=== PATIENT | male | born 1935 | race Caucasian/White ===

== ENCOUNTER 2018-08-31 00:55 | Inpatient (IN) | payer MEDICARE, OTHER ==
[~2018-08-31] VITALS: Ht 172.7 cm; Wt 98.0 kg
[2018-08-31] MEDS ORDERED: DILT360C40 (01:23)
[2018-08-31] MEDS ORDERED: DETEMIR SUBCUT (01:23)
[2018-08-31] MEDS ORDERED: FURO-150 PO (01:23)
[2018-08-31] MEDS ORDERED: HYDR100T27 PO (01:23)
[2018-08-31] MEDS ORDERED: CYA500T PO (01:23)
[2018-08-31] MEDS ORDERED: FOLI0.4T2 PO (01:23)
[2018-08-31] MEDS ORDERED: DILT360C40 PO (01:23)
[2018-08-31] MEDS ORDERED: MAGN500T9 PO (01:25)
[2018-08-31] MEDS ORDERED: LOSA25TA96 PO (01:25)
[2018-08-31] MEDS ORDERED: OMEG1CAP PO (01:25)
[2018-08-31] MEDS ORDERED: LACT1CAP73 PO (01:25)
[2018-08-31] MEDS ORDERED: TRAM50TA2 PO (01:31)
[2018-08-31] MEDS ORDERED: KEN0.1O TP (01:31)
--- NOTE | 2018-08-31 01:33 | NUR ---
ADD NOTE: PT WAS PLACED ON CONTACT PRECAUTIONS UPON ADMIT INTO ED R/T ACTIVE SHINGLES.
[2018-08-31 01:36] LABS: ALBUMIN 2.9 G/DL (3.4-5.0); ANION GAP 15 (8-16); BILIRUBIN,TOTAL 0.3 MG/DL (0.1-1.0); BLOOD UREA NITROGEN 58 MG/DL (7-18); BUN/CREATININE RATIO 13.3 (5.4-32.0); CALCIUM 8.5 MG/DL (8.5-10.1); CHLORIDE 104 MMOL/L (99-107); CREATININE 4.36 MG/DL (0.60-1.10); GLUCOSE 179 MG/DL (70-104); POTASSIUM 4.6 MMOL/L (3.5-5.1); SODIUM 139 MMOL/L (135-145); TOTAL CARBON DIOXIDE 19.8 MMOL/L (24-32); TOTAL PROTEIN 7.1 G/DL (6.4-8.2); eGFR 13 ML/MIN
[2018-08-31 01:37] LABS: ALANINE AMINOTRANSFERASE 17 U/L (12-78); ALBUMIN/GLOBULIN RATIO 0.7 (1.1-1.5); ALKALINE PHOSPHATASE 92 IU/L (46-116); ASPARTATE AMINO TRANSFERASE 11 U/L (10-37)
[2018-08-31 01:46] LABS: PARTIAL THROMBOPLASTIN TIME 31 SECONDS (22-32); PROTHROMBIN TIME 10.6 SECONDS (9.0-12.0)
[2018-08-31 01:56] LABS: BASOPHILS % (AUTO) 0.4 % (0-1); EOSINOPHILS # (AUTO) 0.3 X10'3 (0-0.9); HEMATOCRIT 35.4 % (42.0-52.0); HEMOGLOBIN 11.5 g/dl (14.0-17.9); LYMPHOCYTES # (AUTO) 1.4 X10'3 (1.1-4.8); LYMPHOCYTES % (AUTO) 15.8 % (21-51); MEAN CORPUSCULAR HGB CONC 32.5 % (33.0-36.5); MEAN CORPUSCULAR VOLUME 89.3 FL (78-98); MEAN PLATELET VOLUME 9.2 FL (7.4-10.4); MONOCYTES # (AUTO) 0.9 X10'3 (0-0.9); MONOCYTES % (AUTO) 10.8 % (2-12); PLATELET COUNT 289 X10'3 (140-440); RED BLOOD COUNT 3.97 X10'6 (4.70-6.10); RED CELL DISTRIBUTION WIDTH 14.4 % (11.5-14.5); WHITE BLOOD COUNT 8.6 X10'3 (4.5-11.0)
[2018-08-31] MEDS ORDERED: bisacodyl 10mg suppository rectal RC PRN (03:30)
[2018-08-31] MEDS ORDERED: magnesium hydroxide 30ml (MOM) UD suspension PO PRN (03:30)
[2018-08-31] MEDS ORDERED: acetaminophen 325mg tablet PO PRN ×2 (03:30)
[2018-08-31] MEDS ORDERED: diphenhydrAMINE 25mg capsule PO PRN (03:30)
[2018-08-31] MEDS ORDERED: ondansetron/PF 4mg/2ml inj IV PRN (03:30)
[2018-08-31] MEDS ORDERED: mag hydrox/Alum hydrox/simeth 30ml oral suspension PO PRN (03:30)
[2018-08-31] MEDS ORDERED: HYDROmorphone 1 mg/ml syringe IV PRN ×2 (03:30)
[2018-08-31] MEDS ORDERED: acetaminophen 650mg rectal suppository RC PRN (03:30)
[2018-08-31] MEDS ORDERED: diphenhydrAMINE 50 mg/ml inj IV PRN (03:30)
[2018-08-31] MEDS ORDERED: traMADol 50MG tablet PO PRN (03:30)
[2018-08-31] MEDS ORDERED: metoclopramide 5 mg/ml inj IV PRN (03:30)
[2018-08-31] MEDS ORDERED: dextrose 50%-water 50ml dispensing syringe IV PRN ×2 (03:45)
[2018-08-31] MEDS ORDERED: glucagon, human recombinant 1mg kit SUBCUT PRN (03:45)
[2018-08-31] MEDS ORDERED: MESSAGE TO PHARMACY PO ONE (03:45)
[2018-08-31] MEDS ORDERED: dextrose ORAL solution 15 GM/59 ML bottle PO PRN ×2 (03:45)
[2018-08-31 03:56] LABS: HEMOGLOBIN A1C 8.2 % (4.5-6.2)
[2018-08-31 04:10] LABS: MAGNESIUM 2.3 MG/DL (1.5-2.4); PHOSPHORUS 5.5 MG/DL (2.3-4.5)
--- NOTE | 2018-08-31 05:45 | NUR ---
straightened out his bed linen for him, raised his legs a little to make him more comfortable.
--- NOTE | 2018-08-31 05:47 | NUR ---
add note: he wanted his pulse off for a bit, he said it is really bugging him.
--- NOTE | 2018-08-31 05:56 | NUR ---
pt standing bs to void
[2018-08-31] MEDS: diltiazem CD 180mg cap (once-daily) PO SCH (07:49)
[2018-08-31] MEDS: pantoprazole 40mg Tablet.DR PO SCH (07:49)
[2018-08-31] MEDS: docusate sod 100mg capsule PO SCH ×2 (07:49→19:29)
[2018-08-31] MEDS: heparin, porcine 5000 units/ml vial SQ SCH ×2 (07:50→19:30)
[2018-08-31] MEDS ORDERED: losartan 25mg tablet PO SCH (08:00)
[2018-08-31] MEDS ORDERED: furosemide 10 MG/1 ML 10ml inj IV SCH (08:00)
[2018-08-31] MEDS: insulin Lispro (HumaLOG) vial - multi-dose SQ SCH (08:25)
--- NOTE | 2018-08-31 08:35 | NUR ---
ATTEMPTED TO GIVE REPORT TO GUSTAVO, WAS TOLD SHE WILL CALL ME BACK IN 15MIN.
[2018-08-31 10:00] VITALS: BP 190/67
[2018-08-31] MEDS ORDERED: pneumococcal 23-VAL P-sac vacc 25 mcg/0.5ml vial IMVAC ONE (10:00)
[2018-08-31] MEDS: hydrALAZINE 20mg/ml inj. IV PRN ×2 (17:12→23:05)
[2018-08-31 18:00] VITALS: BP 211/73
--- NOTE | 2018-08-31 18:10 | NUR ---
Patient in room [facility]. I have received report from MAGGIE Aguirre and had the opportunity to ask questions and assume patient care.
[2018-08-31 18:46] VITALS: BP 183/61
[2018-08-31] MEDS: furosemide 40mg/4ml inj IV SCH (19:29)
[2018-08-31] MEDS ORDERED: HYDROmorphone inj. 0.5 MG/0.5 ML DISP.SYRIN IV PRN (20:43)
[2018-08-31] MEDS ORDERED: temazepam 15mg capsule PO PRN (21:00)
[2018-08-31 22:00] VITALS: BP 187/64
[2018-08-31 23:11] VITALS: BP 184/69
[2018-09-01] VITALS (9 sets, daily range): BP systolic 144–210; BP diastolic 54–70
[2018-09-01] MEDS ORDERED: cloNIDine 0.1 mg tablet PO ONE (00:40)
[2018-09-01] MEDS: hydrALAZINE 20mg/ml inj. IV PRN ×3 (05:01→18:32)
--- NOTE | 2018-09-01 06:22 | NUR ---
RECEIVED REPORT FROM MAGGIE BERRY
--- NOTE | 2018-09-01 06:24 | NUR ---
Problems reprioritized. Patient report given, questions answered & plan of care reviewed with MAGGIE Macedo.
[2018-09-01 07:48] LABS: ALBUMIN 2.3 G/DL (3.4-5.0); ANION GAP 11 (8-16); BASOPHILS % (AUTO) 0.3 % (0-1); BLOOD UREA NITROGEN 58 MG/DL (7-18); BUN/CREATININE RATIO 12.5 (5.4-32.0); CHLORIDE 106 MMOL/L (99-107); CHOL/HDL RATIO 3.2 (0.00-4.99); CHOLESTEROL 134 MG/DL (0-200); CREATININE 4.63 MG/DL (0.60-1.10); EOSINOPHILS # (AUTO) 0.2 X10'3 (0-0.9); EOSINOPHILS % (AUTO) 4.3 % (0-6); GLUCOSE 124 MG/DL (70-104); HDL CHOLESTEROL 42 MG/DL (35-60); HEMOGLOBIN 9.9 g/dl (14.0-17.9); LDL CHOLESTEROL 80 MG/DL (50-100); LYMPHOCYTES # (AUTO) 0.7 X10'3 (1.1-4.8); LYMPHOCYTES % (AUTO) 13.7 % (21-51); MAGNESIUM 2.3 MG/DL (1.5-2.4); MEAN CORPUSCULAR HEMOGLOBIN 29.2 PG (27.0-31.0); MEAN CORPUSCULAR VOLUME 88.6 FL (78-98); MEAN PLATELET VOLUME 9.5 FL (7.4-10.4); MONOCYTES # (AUTO) 0.8 X10'3 (0-0.9); MONOCYTES % (AUTO) 15.2 % (2-12); NEUTROPHILS # (AUTO) 3.5 X10'3 (1.8-7.7); NEUTROPHILS % (AUTO) 66.5 % (42-75); PLATELET COUNT 203 X10'3 (140-440); POTASSIUM 4.8 MMOL/L (3.5-5.1); RED BLOOD COUNT 3.39 X10'6 (4.70-6.10); RED CELL DISTRIBUTION WIDTH 15.5 % (11.5-14.5); SODIUM 140 MMOL/L (135-145); TOTAL CARBON DIOXIDE 22.8 MMOL/L (24-32); TRIGLYCERIDES 87 MG/DL (20-135); WHITE BLOOD COUNT 5.3 X10'3 (4.5-11.0); eGFR 12 ML/MIN
[2018-09-01] MEDS: diltiazem CD 180mg cap (once-daily) PO SCH (08:02)
[2018-09-01] MEDS: docusate sod 100mg capsule PO SCH ×2 (08:03→20:08)
[2018-09-01] MEDS: pantoprazole 40mg Tablet.DR PO SCH (08:03)
[2018-09-01] MEDS: furosemide 40mg/4ml inj IV SCH (08:06)
[2018-09-01] MEDS: heparin, porcine 5000 units/ml vial SQ SCH ×2 (08:06→20:09)
--- NOTE | 2018-09-01 14:36 | NUR ---
Initial: Pt admitted with acute CHF and acute renal failure. Pt with A1c 8.2 seen at bedside with SO present. Most communication during visit was with patient's SO as pt was in and out of sleep. Pt's states pt goes to [facility] but does not see an anesthetic assistant for DM management, takes his insulin per rx w/o difficulties, and checks BG q morning with resulting numbers 90-140 per pt. Written DM education with referral to outpatient DM class and RD contact information given to pt's SO. Documented PO intake 50-75% although pt endorses low appetite, pt denies ONS at this time. Pt reports no food allergies or difficulty chewing/swallowing. Pt states he has some constipation with LBM 09/01 stating it was small, requests prunes with dinner, d/w dietary. Will continue to follow. Recommendations: 1) Continue with CHO controlled Na restrict diet 2) Monitor need for ONS 3) Wt per rx Addendum: 09/01/18 at [address] Amended: Links added.
[2018-09-01] MEDS ORDERED: dextrose 50%-water 50ml dispensing syringe IV PRN ×2 (17:50)
[2018-09-01] MEDS ORDERED: glucagon, human recombinant 1mg kit SUBCUT PRN (17:50)
[2018-09-01] MEDS ORDERED: dextrose ORAL solution 15 GM/59 ML bottle PO PRN ×2 (17:50)
[2018-09-01] MEDS ORDERED: insulin Lispro (HumaLOG) vial - multi-dose SQ SCH (17:50)
[2018-09-01] MEDS ORDERED: MESSAGE TO PHARMACY PO ONE (17:50)
--- NOTE | 2018-09-01 18:15 | NUR ---
GAVE REPORT TO MAGGIE MEDRANO
--- NOTE | 2018-09-01 18:20 | NUR ---
Patient in room [facility] 4023B. I have received report from MAGGIE HUNG and had the opportunity to ask questions and assume patient care.
[2018-09-01 19:30] LABS: CLARITY,URINE CLEAR (Clear); COLOR,URINE YELLOW (Yellow); GLUCOSE, URINE 250 mg/dl (Neg); KETONES,URINE NEGATIVE (Neg); LEUKOCYTE ESTERASE ,URINE NEGATIVE (Neg); NITRITES, URINE NEGATIVE (Neg); OCCULT BLOOD,URINE TRACE-LYSED (Neg); PROTEIN,URINE >=300 mg/dl (Neg); UROBILINOGEN,URINE 0.2 E.U/dL (0.2-1.0)
[2018-09-01 19:34] LABS: UA COLLECTION TYPE CLN CATCH MIDSTREAM
[2018-09-01 19:43] LABS: BACTERIA,URINE NONE SEEN /HPF (Neg); FINE GRANULAR CAST 0-3 /LPF (NEGATIVE); HYALINE CASTS 0-3 /LPF (NEGATIVE); MUCUS STRANDS FEW /LPF (Neg); RBC,URINE 0-2 /HPF (0-2); SQUAMOUS EPITHELIAL CELL,UR FEW /LPF (FEW); TOTAL PROTEIN,URINE RANDOM 895.6 MG/DL; WAXY CASTS,URINE 0-3 /LPF (NEGATIVE); WBC,URINE 0-4 /HPF (0-4)
[2018-09-01] MEDS: triamcinolone acet 0.1% cream 15gm TP SCH (20:00)
[2018-09-01] MEDS ORDERED: omega-3 acid ethyl esters 1GM capsule PO SCH (20:00)
[2018-09-01] MEDS: hydrALAZINE 25 MG tablet PO SCH (20:08)
[2018-09-01 20:23] LABS: UA EOSINOPHILS NO EOS /HPF
[2018-09-01] MEDS ORDERED: DETEMIR SUBCUT SCH (21:00)
[2018-09-01] MEDS: insulin glargine (Lantus) pen - multi-dose SQ SCH (21:35)
[2018-09-01] MEDS: cloNIDine 0.1 mg tablet PO PRN (21:40)
[2018-09-02] VITALS (7 sets, daily range): BP systolic 135–196; BP diastolic 52–71
--- NOTE | 2018-09-02 06:17 | NUR ---
RECEIVED REPORT FROM MARCELA RN
--- NOTE | 2018-09-02 06:20 | NUR ---
Problems reprioritized. Patient report given, questions answered & plan of care reviewed with MAGGIE HUNG.
[2018-09-02] MEDS: cloNIDine 0.1 mg tablet PO PRN ×2 (06:36→17:27)
[2018-09-02 07:02] LABS: BASOPHILS % (AUTO) 0.4 % (0-1); EOSINOPHILS # (AUTO) 0.2 X10'3 (0-0.9); EOSINOPHILS % (AUTO) 3.6 % (0-6); HEMATOCRIT 32.4 % (42.0-52.0); HEMOGLOBIN 10.6 g/dl (14.0-17.9); LYMPHOCYTES # (AUTO) 1.3 X10'3 (1.1-4.8); LYMPHOCYTES % (AUTO) 22.1 % (21-51); MEAN CORPUSCULAR HEMOGLOBIN 28.8 PG (27.0-31.0); MEAN CORPUSCULAR HGB CONC 32.7 % (33.0-36.5); MEAN CORPUSCULAR VOLUME 88.1 FL (78-98); MEAN PLATELET VOLUME 9.4 FL (7.4-10.4); MONOCYTES # (AUTO) 0.9 X10'3 (0-0.9); NEUTROPHILS # (AUTO) 3.5 X10'3 (1.8-7.7); NEUTROPHILS % (AUTO) 58.9 % (42-75); PLATELET COUNT 225 X10'3 (140-440); RED BLOOD COUNT 3.68 X10'6 (4.70-6.10); RED CELL DISTRIBUTION WIDTH 15.8 % (11.5-14.5); WHITE BLOOD COUNT 5.9 X10'3 (4.5-11.0)
[2018-09-02 07:05] LABS: ALBUMIN 2.5 G/DL (3.4-5.0); ANION GAP 12 (8-16); BLOOD UREA NITROGEN 66 MG/DL (7-18); BUN/CREATININE RATIO 13.4 (5.4-32.0); CALCIUM 8.2 MG/DL (8.5-10.1); CHLORIDE 105 MMOL/L (99-107); CREATININE 4.94 MG/DL (0.60-1.10); GLUCOSE 136 MG/DL (70-104); MAGNESIUM 2.4 MG/DL (1.5-2.4); POTASSIUM 4.7 MMOL/L (3.5-5.1); SODIUM 139 MMOL/L (135-145); TOTAL CARBON DIOXIDE 22.1 MMOL/L (24-32); eGFR 11 ML/MIN
[2018-09-02] MEDS: hydrALAZINE 25 MG tablet PO SCH ×3 (07:34→21:45)
[2018-09-02] MEDS: folic acid 0.4mg tablet PO SCH (07:35)
[2018-09-02] MEDS: lactobacillus rhamnosus 10,000 MMU CELLS/CAPSULE PO SCH (07:35)
[2018-09-02] MEDS: cyanocobalamin 500mcg tablet PO SCH (07:36)
[2018-09-02] MEDS: magnesium oxide 400mg tablet PO SCH (07:36)
[2018-09-02] MEDS: docusate sod 100mg capsule PO SCH ×2 (07:37→21:45)
[2018-09-02] MEDS: diltiazem 30mg tablet PO SCH ×2 (07:37→16:21)
[2018-09-02] MEDS: heparin, porcine 5000 units/ml vial SQ SCH ×2 (07:38→21:45)
[2018-09-02] MEDS: triamcinolone acet 0.1% cream 15gm TP SCH ×2 (07:39→21:45)
[2018-09-02] MEDS ORDERED: diltiazem CD 120mg capsule (once-daily) PO SCH (08:00)
[2018-09-02] MEDS ORDERED: diltiazem SR 60mg capsule (twice daily) PO SCH (08:00)
[2018-09-02] MEDS: insulin Lispro (HumaLOG) vial - multi-dose SQ SCH ×3 (08:35→19:22)
--- NOTE | 2018-09-02 09:22 | NUR ---
took pic of pts rash, pics in chart, rash potash flaker and cdi, continue to monitor
[2018-09-02] MEDS: normal saline 1000ml 1,000 ML IV SCH ×2 (09:57→23:00)
--- NOTE | 2018-09-02 17:54 | NUR ---
sent a page to hospitalist letting him know that i had to saliene lock pt because his bilateral hands and feet and legs are significantly more swollen, waiting for hospitalist to call me back, continue to monitor
--- NOTE | 2018-09-02 18:33 | NUR ---
gave report to jesusita torres
--- NOTE | 2018-09-02 20:00 | NUR ---
pt refused to be on fluid due to swelling of hand. pt c/o tingling. pt understand the risks.
[2018-09-02] MEDS: insulin glargine (Lantus) pen - multi-dose SQ SCH (21:45)
[2018-09-02] MEDS: hydrALAZINE 20mg/ml inj. IV PRN (23:44)
[2018-09-03 00:40] VITALS: BP 165/74
[2018-09-03 06:00] VITALS: BP 159/72
--- NOTE | 2018-09-03 06:16 | NUR ---
received report from jesusita torres
[2018-09-03 06:20] LABS: BASOPHILS % (AUTO) 0.5 % (0-1); EOSINOPHILS # (AUTO) 0.3 X10'3 (0-0.9); EOSINOPHILS % (AUTO) 4.4 % (0-6); HEMATOCRIT 29.6 % (42.0-52.0); HEMOGLOBIN 9.7 g/dl (14.0-17.9); LYMPHOCYTES # (AUTO) 1.1 X10'3 (1.1-4.8); LYMPHOCYTES % (AUTO) 18.5 % (21-51); MEAN CORPUSCULAR HGB CONC 32.8 % (33.0-36.5); MEAN CORPUSCULAR VOLUME 88.4 FL (78-98); MEAN PLATELET VOLUME 9.4 FL (7.4-10.4); MONOCYTES # (AUTO) 0.7 X10'3 (0-0.9); MONOCYTES % (AUTO) 12.6 % (2-12); NEUTROPHILS # (AUTO) 3.6 X10'3 (1.8-7.7); PLATELET COUNT 214 X10'3 (140-440); RED BLOOD COUNT 3.35 X10'6 (4.70-6.10); RED CELL DISTRIBUTION WIDTH 15.9 % (11.5-14.5); WHITE BLOOD COUNT 5.7 X10'3 (4.5-11.0)
--- NOTE | 2018-09-03 06:20 | NUR ---
Problems reprioritized. Patient report given, questions answered & plan of care reviewed with jesusita Macedo.
[2018-09-03 06:44] LABS: ALBUMIN 2.3 G/DL (3.4-5.0); ANION GAP 13 (8-16); BLOOD UREA NITROGEN 71 MG/DL (7-18); BUN/CREATININE RATIO 14.9 (5.4-32.0); CALCIUM 7.8 MG/DL (8.5-10.1); CHLORIDE 105 MMOL/L (99-107); CREATININE 4.76 MG/DL (0.60-1.10); GLUCOSE 105 MG/DL (70-104); MAGNESIUM 2.5 MG/DL (1.5-2.4); POTASSIUM 4.6 MMOL/L (3.5-5.1); SODIUM 139 MMOL/L (135-145); TOTAL CARBON DIOXIDE 20.7 MMOL/L (24-32); eGFR 12 ML/MIN
[2018-09-03] MEDS: lactobacillus rhamnosus 10,000 MMU CELLS/CAPSULE PO SCH (07:14)
[2018-09-03] MEDS: folic acid 0.4mg tablet PO SCH (07:14)
[2018-09-03] MEDS: cyanocobalamin 500mcg tablet PO SCH (07:14)
[2018-09-03] MEDS: magnesium oxide 400mg tablet PO SCH (07:14)
[2018-09-03] MEDS: diltiazem 30mg tablet PO SCH ×4 (07:15→23:31)
[2018-09-03] MEDS: docusate sod 100mg capsule PO SCH ×3 (07:15→20:38)
[2018-09-03] MEDS: hydrALAZINE 25 MG tablet PO SCH ×3 (07:15→20:38)
[2018-09-03] MEDS: heparin, porcine 5000 units/ml vial SQ SCH ×2 (07:17→20:37)
[2018-09-03] MEDS: triamcinolone acet 0.1% cream 15gm TP SCH ×2 (07:19→20:39)
[2018-09-03] MEDS: insulin Lispro (HumaLOG) vial - multi-dose SQ SCH ×2 (08:54→19:13)
[2018-09-03 10:00] VITALS: BP 166/54
[2018-09-03] MEDS: normal saline 1000ml 1,000 ML IV SCH ×2 (12:20→19:14)
--- NOTE | 2018-09-03 13:00 | NUR ---
pt did not eat any lunch therefore he is not a candidate for receiving insulin at this time, continue to monitor
--- NOTE | 2018-09-03 18:19 | NUR ---
gave report to jesusita torres
--- NOTE | 2018-09-03 18:30 | NUR ---
Patient in room [facility]. I have received report from jesusita Macedo and had the opportunity to ask questions and assume patient care.
[2018-09-03 19:33] VITALS: BP 174/58
[2018-09-03 20:57] VITALS: BP 198/63
[2018-09-03] MEDS: insulin glargine (Lantus) pen - multi-dose SQ SCH (21:35)
[2018-09-03 23:33] VITALS: BP 178/71
[2018-09-04] MEDS: hydrALAZINE 20mg/ml inj. IV PRN (01:01)
[2018-09-04 01:03] VITALS: BP 185/67
[2018-09-04] MEDS: cloNIDine 0.1 mg tablet PO PRN (03:09)
[2018-09-04 03:12] VITALS: BP 175/60
[2018-09-04 06:21] LABS: BASOPHILS % (AUTO) 0.3 % (0-1); EOSINOPHILS # (AUTO) 0.2 X10'3 (0-0.9); HEMATOCRIT 28.3 % (42.0-52.0); HEMOGLOBIN 9.3 g/dl (14.0-17.9); LYMPHOCYTES % (AUTO) 16.5 % (21-51); MEAN CORPUSCULAR HGB CONC 32.9 % (33.0-36.5); MEAN CORPUSCULAR VOLUME 88.3 FL (78-98); MEAN PLATELET VOLUME 9.4 FL (7.4-10.4); MONOCYTES # (AUTO) 0.7 X10'3 (0-0.9); MONOCYTES % (AUTO) 12.5 % (2-12); NEUTROPHILS % (AUTO) 67.7 % (42-75); PLATELET COUNT 212 X10'3 (140-440); RED CELL DISTRIBUTION WIDTH 15.3 % (11.5-14.5); WHITE BLOOD COUNT 5.8 X10'3 (4.5-11.0)
[2018-09-04 06:24] LABS: ALBUMIN 2.2 G/DL (3.4-5.0); ANION GAP 14 (8-16); BLOOD UREA NITROGEN 68 MG/DL (7-18); BUN/CREATININE RATIO 15.9 (5.4-32.0); CALCIUM 7.7 MG/DL (8.5-10.1); CHLORIDE 105 MMOL/L (99-107); CREATININE 4.29 MG/DL (0.60-1.10); GLUCOSE 80 MG/DL (70-104); MAGNESIUM 2.6 MG/DL (1.5-2.4); POTASSIUM 4.7 MMOL/L (3.5-5.1); SODIUM 140 MMOL/L (135-145); TOTAL CARBON DIOXIDE 21.2 MMOL/L (24-32); eGFR 13 ML/MIN
--- NOTE | 2018-09-04 06:53 | NUR ---
Received report from Tracey SERRANO
[2018-09-04 07:02] VITALS: BP 164/64
[2018-09-04] MEDS: folic acid 0.4mg tablet PO SCH (07:39)
[2018-09-04] MEDS: cyanocobalamin 500mcg tablet PO SCH (07:39)
[2018-09-04] MEDS: lactobacillus rhamnosus 10,000 MMU CELLS/CAPSULE PO SCH (07:39)
[2018-09-04] MEDS: diltiazem 30mg tablet PO SCH ×2 (07:39→16:34)
[2018-09-04] MEDS: magnesium oxide 400mg tablet PO SCH (07:40)
[2018-09-04] MEDS: hydrALAZINE 25 MG tablet PO SCH ×2 (07:41→12:17)
[2018-09-04] MEDS: triamcinolone acet 0.1% cream 15gm TP SCH (07:41)
[2018-09-04] MEDS: heparin, porcine 5000 units/ml vial SQ SCH (07:41)
[2018-09-04] MEDS: insulin Lispro (HumaLOG) vial - multi-dose SQ SCH ×2 (09:45→14:10)
[2018-09-04] MEDS ORDERED: ACYC-202 PO (17:06)
[2018-09-04] MEDS ORDERED: DILT30TA5 PO (17:06)
[2018-09-04] MEDS ORDERED: HYDR-4070 PO (17:06)
--- NOTE | 2018-09-04 17:48 | NUR ---
Patient was discharged iv and tele was removed from patient. patient was wheeled out to car where his was waiting for him. [facility] and stated he will go see his primary
== END 2018-09-04 17:45 | disposition home or self-care (01) | DRG 682 ==
LOC: ER 00:56 → ED HOLD 03:29 → ORTHO 4S 09:30
PROVIDERS: ADMIT Family Medicine; ATTEND Hospitalist
DX: N17.9 Acute kidney failure, unspecified (principal); I50.33 Acute on chronic diastolic (congestive) heart failure; I13.0 Hypertensive heart and chronic kidney disease with heart failure and stage 1 through stage 4 chronic kidney disease, or unspecified chronic kidney disease; N18.4 Chronic kidney disease, stage 4 (severe); B02.9 Zoster without complications; I16.0 Hypertensive urgency; E11.65 Type 2 diabetes mellitus with hyperglycemia; E11.21 Type 2 diabetes mellitus with diabetic nephropathy; E11.22 Type 2 diabetes mellitus with diabetic chronic kidney disease; G47.33 Obstructive sleep apnea (adult) (pediatric); R00.1 Bradycardia, unspecified; Z88.5 Allergy status to narcotic agent; Z79.899 Other long term (current) drug therapy
CPT/HCPCS: 36415; 80048; 80053; 80061; 81001; 82570; 82948; 83036; 83735; 83880; 84100; 84156; 84300; 84443; 85025; 85610; 85730; 87070; 87207; 90732; 93005; 93306; 97116; 97162; 97530; 99285; G0378; J0360; J1644; J1815; J1940; J7030

== ENCOUNTER 2019-08-27 15:54 | Emergency (ER) | payer MEDICARE ==
[~2019-08-27] VITALS: Ht 170.2 cm; Wt 90.0 kg
[~2019-08-27 15:54] MED LIST: ACYC-202 PO; CYAN500T63 PO; DETEMIR SUBCUT; DILT30TA5 PO; FOLI0.4T2 PO; HYDR-4070 PO; HYDR100T27 PO; KEN0.1O TP; LACT1CAP73 PO; MAGN500T9 PO; OMEG1CAP PO; TRAM50TA2 PO
--- NOTE | 2019-08-27 17:34 | NUR ---
BACK FROM BREAK: EDDY SERRANO AND STEPHANIE RN UNABLE TO PLACE IV LINE: 4 TOTAL ATTEMPTS
[2019-08-27 17:37] LABS: BASOPHILS # (AUTO) 0.1 X10'3 (0-0.2); EOSINOPHILS # (AUTO) 0.2 X10'3 (0-0.9); HEMATOCRIT 27.1 % (42.0-52.0); HEMOGLOBIN 9.2 g/dl (14.0-17.9); LYMPHOCYTES % (AUTO) 12.3 % (21-51); MEAN CORPUSCULAR HEMOGLOBIN 31.9 PG (27.0-31.0); MEAN CORPUSCULAR HGB CONC 33.8 g/dL (33.0-36.5); MEAN CORPUSCULAR VOLUME 94.2 FL (78-98); MEAN PLATELET VOLUME 9.6 FL (7.4-10.4); MONOCYTES # (AUTO) 0.9 X10'3 (0-0.9); MONOCYTES % (AUTO) 11.2 % (2-12); NEUTROPHILS # (AUTO) 5.9 X10'3 (1.8-7.7); NEUTROPHILS % (AUTO) 73.5 % (42-75); PLATELET COUNT 183 X10'3 (140-440); RED BLOOD COUNT 2.88 X10'6 (4.70-6.10); RED CELL DISTRIBUTION WIDTH 14.9 % (11.5-14.5)
[2019-08-27 17:54] LABS: ALANINE AMINOTRANSFERASE 53 U/L (12-78); ALBUMIN 3.2 G/DL (3.4-5.0); ALBUMIN/GLOBULIN RATIO 0.9 (1.1-1.5); ALKALINE PHOSPHATASE 87 IU/L (46-116); ANION GAP 17 (8-16); ASPARTATE AMINO TRANSFERASE 19 U/L (10-37); BILIRUBIN,TOTAL 0.3 MG/DL (0.1-1.0); BLOOD UREA NITROGEN 94 MG/DL (7-18); CALCIUM 8.3 MG/DL (8.5-10.1); CHLORIDE 112 MMOL/L (99-107); CREATININE 7.22 MG/DL (0.60-1.10); GLUCOSE 118 MG/DL (70-104); SODIUM 145 MMOL/L (135-145); TOTAL CARBON DIOXIDE 16.5 MMOL/L (24-32); TOTAL PROTEIN 6.8 G/DL (6.4-8.2); eGFR 7 ML/MIN
[2019-08-27] MEDS ORDERED: AMLO5TAB PO (20:09)
[2019-08-27] MEDS ORDERED: DILT180C66 PO (20:09)
[2019-08-27] MEDS ORDERED: DILT30TA5 PO (20:09)
[2019-08-27] MEDS ORDERED: FURO80TA87 PO ×2 (20:09→21:21)
[2019-08-27] MEDS ORDERED: ATOR20TA PO (20:09)
[2019-08-27] MEDS ORDERED: CYAN500T63 PO (20:18)
[2019-08-27] MEDS ORDERED: FOLI0.4T2 PO (20:18)
[2019-08-27] MEDS ORDERED: ASPI-611 PO (20:18)
[2019-08-27] MEDS ORDERED: HYDR-4069 PO (20:18)
[2019-08-27 21:12] VITALS: BP 192/68
[2019-08-27] MEDS ORDERED: furosemide 40mg/4ml inj IV ONE (21:15)
== END 2019-08-27 21:58 | disposition home or self-care (01) ==
LOC: ER 15:54
DX: R53.1 Weakness (principal); N17.9 Acute kidney failure, unspecified; I10 Essential (primary) hypertension; E11.9 Type 2 diabetes mellitus without complications; Z98.890 Other specified postprocedural states; Z90.89 Acquired absence of other organs; Z88.5 Allergy status to narcotic agent; Z79.82 Long term (current) use of aspirin; Z79.899 Other long term (current) drug therapy
CPT/HCPCS: 36415; 71046; 80053; 83880; 84145; 84484; 85025; 85610; 93005; 96374; 99284; J1940

== ENCOUNTER 2019-11-04 11:06 | Outpatient (CLI) | payer MEDICARE ==
[~2019-11-04 11:06] MED LIST changes: -ACYC-202 PO; +AMLO5TAB PO; +ASPI-611 PO; +ATOR20TA PO; +CYAN100T46 PO; -CYAN500T63 PO; -DETEMIR SUBCUT; +DILT180C66 PO; -DILT30TA5 PO; +HYDR-4069 PO; -HYDR-4070 PO; -HYDR100T27 PO; +INSU100I25 SQ; -KEN0.1O TP; -LACT1CAP73 PO; -MAGN500T9 PO; -OMEG1CAP PO; +PHO667C PO; -TRAM50TA2 PO
[2019-11-04 12:18] LABS: BASOPHILS # (AUTO) 0.1 X10'3 (0-0.2); BASOPHILS % (AUTO) 1.2 % (0-1); EOSINOPHILS # (AUTO) 0.2 X10'3 (0-0.9); HEMATOCRIT 35.6 % (42.0-52.0); HEMOGLOBIN 11.8 g/dl (14.0-17.9); LYMPHOCYTES # (AUTO) 0.9 X10'3 (1.1-4.8); LYMPHOCYTES % (AUTO) 11.9 % (21-51); MEAN CORPUSCULAR HEMOGLOBIN 30.6 PG (27.0-31.0); MEAN CORPUSCULAR HGB CONC 33.2 g/dL (33.0-36.5); MEAN CORPUSCULAR VOLUME 92.1 FL (78-98); MEAN PLATELET VOLUME 9.3 FL (7.4-10.4); MONOCYTES # (AUTO) 0.9 X10'3 (0-0.9); MONOCYTES % (AUTO) 11.7 % (2-12); NEUTROPHILS # (AUTO) 5.7 X10'3 (1.8-7.7); NEUTROPHILS % (AUTO) 72.2 % (42-75); PLATELET COUNT 205 X10'3 (140-440); RED BLOOD COUNT 3.86 X10'6 (4.70-6.10); RED CELL DISTRIBUTION WIDTH 14.8 % (11.5-14.5); WHITE BLOOD COUNT 7.9 X10'3 (4.5-11.0)
[2019-11-04 12:31] LABS: ALBUMIN 3.4 G/DL (3.4-5.0); ANION GAP 5 (8-16); BLOOD UREA NITROGEN 22 MG/DL (7-18); BUN/CREATININE RATIO 7.4 (5.4-32.0); CALCIUM 9.1 MG/DL (8.5-10.1); CHLORIDE 102 MMOL/L (99-107); CREATININE 2.97 MG/DL (0.60-1.10); GLUCOSE 142 MG/DL (70-104); POTASSIUM 4.1 MMOL/L (3.5-5.1); SODIUM 140 MMOL/L (135-145); TOTAL CARBON DIOXIDE 33.5 MMOL/L (24-32); eGFR 20 ML/MIN
== END 2019-11-04 23:59 | disposition home or self-care (01) ==
LOC: LAB 11:06
PROVIDERS: ATTEND Surgery
DX: Z01.811 Encounter for preprocedural respiratory examination (principal)
CPT/HCPCS: 36415; 80048; 85025

== ENCOUNTER 2020-03-10 21:41 | Emergency (ER) | payer MEDICARE ==
[~2020-03-10] VITALS: Ht 167.6 cm; Wt 89.5 kg
[2020-03-10 21:44] VITALS: BP 166/69
--- NOTE | 2020-03-10 22:44 | NUR ---
ACCOMPANIED DR DRAPER WITH DISIMPACTION. UNSUCCESSFUL - SOAP SUDS ENEMA ORDERED
--- NOTE | 2020-03-10 23:05 | NUR ---
ENEMA COMPLETED AND PT HAD BM. BARON AWARE
== END 2020-03-10 23:28 | disposition home or self-care (01) ==
LOC: ER 21:42
DX: K59.00 Constipation, unspecified (principal); N18.6 End stage renal disease; Z99.2 Dependence on renal dialysis; G47.30 Sleep apnea, unspecified; E11.22 Type 2 diabetes mellitus with diabetic chronic kidney disease; I12.0 Hypertensive chronic kidney disease with stage 5 chronic kidney disease or end stage renal disease; Z98.890 Other specified postprocedural states; Z87.891 Personal history of nicotine dependence; Z88.5 Allergy status to narcotic agent; Z79.82 Long term (current) use of aspirin; Z79.899 Other long term (current) drug therapy
CPT/HCPCS: 99284

== ENCOUNTER 2020-06-10 09:01 | Emergency (ER) | payer MEDICARE ==
[~2020-06-10] VITALS: Ht 175.3 cm; Wt 86.4 kg
[~2020-06-10 09:01] MED LIST changes: -CYAN100T46 PO; +CYAN100T47 PO
[2020-06-10] MEDS ORDERED: docusate sodium 100mg/10ml UD cup PO STA (09:45)
[2020-06-10] MEDS ORDERED: magnesium citrate 296ml oral solution PO ONE (09:45)
[2020-06-10] MEDS ORDERED: DOCU100C40 PO (11:55)
[2020-06-10 12:31] VITALS: BP 131/56
== END 2020-06-10 12:34 | disposition home or self-care (01) ==
LOC: ER 09:01
DX: K59.00 Constipation, unspecified (principal); I12.0 Hypertensive chronic kidney disease with stage 5 chronic kidney disease or end stage renal disease; E11.22 Type 2 diabetes mellitus with diabetic chronic kidney disease; N18.6 End stage renal disease; Z99.2 Dependence on renal dialysis; Z98.890 Other specified postprocedural states; Z88.5 Allergy status to narcotic agent; Z79.82 Long term (current) use of aspirin; Z79.899 Other long term (current) drug therapy
CPT/HCPCS: 99284